=== PATIENT | male | born 1975 | race Caucasian/White ===

== ENCOUNTER 2019-02-15 02:19 | Emergency (ER) | payer MEDICAID ==
[~2019-02-15] VITALS: Ht 180.3 cm; Wt 93.0 kg
[2019-02-15 02:34] VITALS: BP 120/76
--- NOTE | 2019-02-15 02:37 | NUR ---
TO LOBBY, A/W BED AMBULATORY
[2019-02-15 03:27] VITALS: BP 118/78
--- NOTE | 2019-02-15 06:00 | NUR ---
PATIENT CAN NOT WAIT ANYMORE. PATIENT LEFT WITHOUT BEING SEEN BY DR. CORRALES. NO FURTHER CARE PROVIDED FOR PATIENT.
== END 2019-02-15 06:00 | disposition left against medical advice (07) ==
LOC: MED 02:19
DX: M54.2 Cervicalgia (principal); M54.9 Dorsalgia, unspecified; Z53.21 Procedure and treatment not carried out due to patient leaving prior to being seen by health care provider; V89.2XXA Person injured in unspecified motor-vehicle accident, traffic, initial encounter; Y93.89 Activity, other specified; Y92.89 Other specified places as the place of occurrence of the external cause; Y99.8 Other external cause status

== ENCOUNTER 2019-02-20 11:02 | Emergency (ER) | payer MEDICAID ==
[~2019-02-20] VITALS: Ht 177.8 cm; Wt 93.0 kg
[2019-02-20 11:05] VITALS: BP 118/74
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
--- NOTE | 2019-02-20 11:10 | NUR ---
1107-- PT AMBULATED TO ER BED 9
--- NOTE | 2019-02-20 11:32 | NUR ---
DR. CORRALES BEDSIDE EVALUATING PT
--- NOTE | 2019-02-20 11:49 | NUR ---
Randi rowe in [facility] - 02/20/19 at 1149 by MEDAJR PT TAKEN TO CT VIA WC
--- NOTE | 2019-02-20 11:56 | NUR ---
PT TAKEN TO CT VIA WHEEL CHAIR BY TECH
--- NOTE | 2019-02-20 12:03 | NUR ---
PT RETURNED TO ER BED 9 VIA WHEELCHAIR
[2019-02-20 13:13] VITALS: BP 121/72
--- NOTE | 2019-02-20 13:13 | NUR ---
Patient discharged with v/s stable. Written and verbal after care instructions given and explained. Patient verbalized understanding. Ambulatory with steady gait. All questions addressed prior to discharge. Advised to follow up with PMD.
== END 2019-02-20 11:05 | disposition home or self-care (01) ==
LOC: MED 11:02
DX: M54.2 Cervicalgia (principal); M54.5 Low back pain; V59.9XXA Occupant (driver) (passenger) of pick-up truck or van injured in unspecified traffic accident, initial encounter; Y93.89 Activity, other specified; Y92.89 Other specified places as the place of occurrence of the external cause; Y99.8 Other external cause status
CPT/HCPCS: 72125; 99284